=== PATIENT | male | born 1995 | race Caucasian/White ===

== ENCOUNTER 2019-06-10 02:26 | Emergency (ER) | payer SELFPAY ==
[~2019-06-10] VITALS: Ht 177.8 cm; Wt 78.0 kg
[2019-06-10] MEDS ORDERED: DIPHENHYDRAMINE 25MG CAPSULE PO ONE (04:00)
[2019-06-10] MEDS ORDERED: FAMOTIDINE 20MG TABLET PO ONE (04:00)
[2019-06-10] MEDS ORDERED: DEXAMETHASONE 10 MG/ML VIAL IV ONE (04:00)
[2019-06-10 06:18] VITALS: BP 98/64
== END 2019-06-10 06:30 | disposition home or self-care (01) ==
LOC: ER 02:26
DX: L23.5 Allergic contact dermatitis due to other chemical products (principal)
CPT/HCPCS: 96374; 99283; J1100; Q0163